=== PATIENT | female | born 1965 | race African-American/Black ===

== ENCOUNTER 2023-10-07 23:30 | Inpatient (IN) | payer SELFPAY ==
[2023-10-07] MEDS ORDERED: Morphine 4 MG/ML VIAL ONE (23:50)
[2023-10-07] MEDS ORDERED: Ondansetron PF 4 MG/2 ML Vial ONE (23:50)
[2023-10-08 00:43] LABS: #Eosinphils 0.1 thou/uL (0.0-0.7); #Monocytes 0.5 thou/uL (0.11-0.59); #Neutrophils 5.7 thou/uL (1.40-6.50); %Basophils 0.4 % (0.0-1.0); %Eosinophils 0.8 % (0.0-10.0); %Lymphocytes 15.5 % (21.0-51.0); %Monocytes 6.8 % (0.0-10.0); %Neutrophils 75.6 % (42.0-75.0); Hematocrit 26.2 % (36.0-47.0); Hemoglobin 8.7 g/dL (12.0-16.0); Mean Corpuscular HGB CONC 33.2 g/dL (32.0-36.0); Mean Corpuscular Hemoglobin 28.7 pg (27.0-31.0); Mean Corpuscular Volume 86.5 fl (78.0-98.0); Mean Platelet Volume 11.4 fL (7.4-10.4); Platelet Count 131 10x3/uL (130-400); RBC Distribution Width 16.3 % (11.5-14.5); Red Blood Cell (RBC) Count 3.03 mill/uL (4.20-5.40); White Blood Cell (WBC) Count 7.5 10x3/uL (4.8-10.8)
[2023-10-08] MEDS ORDERED: fentaNYL 50 mcg/mL 1 mL Vial ONE (00:50)
[2023-10-08 00:57] LABS: PTT 26.8 sec (22.9-36.1); Prothrombin Time 13.5 sec (12.0-14.7)
[2023-10-08 01:06] LABS: ALT (SGPT) 28 U/L (8-55); AST (SGOT) 24 U/L (5-34); Albumin 4.1 g/dL (3.5-5.0); Alkaline Phosphatase 285 U/L (40-110); Anion Gap 19 mmol/L (10-20); BUN (Urea Nitrogen) 25 mg/dL (9.8-20.1); Bilirubin, Total 0.8 mg/dL (0.2-1.2); CK (CPK) 33 U/L (29-168); Calc. Creatinine Clearance 0 mL/min (70-130); Calcium 10.3 mg/dL (7.8-10.44); Carbon Dioxide 17 mmol/L (22-29); Chloride 104 mmol/L (98-107); Estimated GFR 43; Glucose 156 mg/dL (70-105); Lipase 5 U/L (8-78); Potassium 5.1 mmol/L (3.5-5.1); Protein, Total 8.1 g/dL (6.0-8.3); Sodium 135 mmol/L (136-145)
[2023-10-08 01:08] LABS: Troponin I Less than 0.010 ng/mL (< 0.028)
[2023-10-08] MEDS ORDERED: Ondansetron ODT 4 MG TAB SL PRN (03:15)
[2023-10-08] MEDS ORDERED: Ondansetron PF 4 MG/2 ML Vial IVP PRN (03:15)
[2023-10-08] MEDS ORDERED: Acetaminophen 325 MG TAB PO PRN (03:15)
[2023-10-08] MEDS ORDERED: hydrALAZINE 20 MG/ML VIAL SLOW IVP PRN (03:55)
[2023-10-08] MEDS ORDERED: Ipratropium/Albuterol 3 ML NEB NEB PRN (03:55)
[2023-10-08] MEDS: Morphine 2 MG/ML VIAL SLOW IVP PRN (04:18)
[2023-10-08] MEDS: Sodium Chloride 0.9% 1,000 ML IV SCH (04:22)
[2023-10-08] MEDS: Acetaminophen 325 MG TAB PO SCH (05:08)
[2023-10-08] MEDS: traMADol HCl 50 MG TAB PO SCH (05:08)
[2023-10-08] MEDS: traMADol HCl 50 MG TAB PO PRN (05:09)
[2023-10-08 05:50] VITALS: BMI 23.4
[2023-10-08 07:17] LABS: Prothrombin Time 13.5 sec (12.0-14.7)
[2023-10-08 07:18] LABS: PTT 28.2 sec (22.9-36.1)
[2023-10-08] MEDS ORDERED: CEFAZOLIN 2 GM in Sodium Chloride 0.9% 100 ML IVPB SCH (08:00)
[2023-10-08] MEDS: Senokot S 8.6-50 MG TAB PO SCH (08:38)
[2023-10-08] MEDS: Polyethylene Glycol 3350 17 GM Packet PO SCH (08:38)
[2023-10-08] MEDS: cloNIDine 0.1 MG TAB PO SCH (08:38)
[2023-10-08] MEDS: Carvedilol 3.125 MG TAB PO SCH (08:38)
[2023-10-08] MEDS: Famotidine/PF 20 mg/2ml Vial SLOW IVP SCH (08:38)
[2023-10-08] MEDS: Amlodipine 5 MG TAB PO SCH (08:38)
[2023-10-08] MEDS: Ferrous Sulfate 325 MG TAB PO SCH (08:38)
[2023-10-08] MEDS ORDERED: Sodium Chloride 0.9% 100 ML ONE (11:55)
[2023-10-08] MEDS ORDERED: CEFAZOLIN 2 GM VIAL ONE (11:55)
[2023-10-08] MEDS ORDERED: PROPOFOL 20 ML ONE (12:01)
[2023-10-08] MEDS ORDERED: Lidocaine 1% PF 5 ML VIAL ONE (12:01)
[2023-10-08] MEDS ORDERED: Ondansetron PF 4 MG/2 ML Vial ONE (12:01)
[2023-10-08] MEDS ORDERED: fentaNYL PF 100 MCG/2 ML SYRINGE ONE (12:25)
[2023-10-08] MEDS ORDERED: Lidocaine 2% PF 5 ML VIAL ONE (12:34)
[2023-10-08] MEDS ORDERED: CEFAZOLIN 1 GM VIAL ONE (12:34)
[2023-10-08] MEDS ORDERED: ePHEDrine Sulfate 50 MG/10 ML VIAL ONE (12:34)
[2023-10-08] MEDS ORDERED: Phenylephrine 10 MG/ML VIAL ONE (12:34)
[2023-10-08] MEDS: CEFAZOLIN 2 GM in Sodium Chloride 0.9% 100 ML IVPB SCH (20:39)
[2023-10-09 04:52] LABS: #Monocytes 0.6 thou/uL (0.11-0.59); #Neutrophils 4.9 thou/uL (1.40-6.50); %Basophils 0.2 % (0.0-1.0); %Eosinophils 0.2 % (0.0-10.0); %Lymphocytes 10.8 % (21.0-51.0); %Monocytes 9.9 % (0.0-10.0); %Neutrophils 77.9 % (42.0-75.0); Hematocrit 17.6 % (36.0-47.0); Hemoglobin 5.8 g/dL (12.0-16.0); Mean Corpuscular Hemoglobin 29.4 pg (27.0-31.0); Mean Corpuscular Volume 89.3 fl (78.0-98.0); Mean Platelet Volume 12.1 fL (7.4-10.4); Red Blood Cell (RBC) Count 1.97 mill/uL (4.20-5.40); White Blood Cell (WBC) Count 6.3 10x3/uL (4.8-10.8)
[2023-10-09 04:55] LABS: INR-International Normal Ratio 1.2; Prothrombin Time 14.9 sec (12.0-14.7)
[2023-10-09 04:56] LABS: PTT 37.1 sec (22.9-36.1)
[2023-10-09 04:58] LABS: Critical Call w/ Read Back NUR.LW8@0458; Platelet Count 96 10x3/uL (130-400)
[2023-10-09 05:26] LABS: Anion Gap 15 mmol/L (10-20); BUN (Urea Nitrogen) 26 mg/dL (9.8-20.1); Calc. Creatinine Clearance 33 mL/min (70-130); Calcium 9.6 mg/dL (7.8-10.44); Carbon Dioxide 18 mmol/L (22-29); Chloride 108 mmol/L (98-107); Estimated GFR 34; Glucose 136 mg/dL (70-105); Sodium 136 mmol/L (136-145)
[2023-10-09 18:40] LABS: #Monocytes 0.7 thou/uL (0.11-0.59); #Neutrophils 4.8 thou/uL (1.40-6.50); %Basophils 0.3 % (0.0-1.0); %Eosinophils 0.3 % (0.0-10.0); %Lymphocytes 11.5 % (21.0-51.0); %Monocytes 10.6 % (0.0-10.0); %Neutrophils 76.2 % (42.0-75.0); Hematocrit 21.4 % (36.0-47.0); Hemoglobin 7.3 g/dL (12.0-16.0); Mean Corpuscular HGB CONC 34.1 g/dL (32.0-36.0); Mean Corpuscular Hemoglobin 30.4 pg (27.0-31.0); Mean Corpuscular Volume 89.2 fl (78.0-98.0); Mean Platelet Volume 12.4 fL (7.4-10.4); RBC Distribution Width 15.8 % (11.5-14.5); White Blood Cell (WBC) Count 6.3 10x3/uL (4.8-10.8)
[2023-10-09 18:42] LABS: Platelet Count 103 10x3/uL (130-400)
[2023-10-09] MEDS: Famotidine/PF 20 mg/2ml Vial SLOW IVP SCH (20:44)
[2023-10-10 04:57] LABS: #Eosinphils 0.1 thou/uL (0.0-0.7); #Monocytes 0.8 thou/uL (0.11-0.59); #Neutrophils 5.5 thou/uL (1.40-6.50); %Basophils 0.3 % (0.0-1.0); %Eosinophils 0.7 % (0.0-10.0); %Monocytes 11.4 % (0.0-10.0); %Neutrophils 77.3 % (42.0-75.0); Hematocrit 23.8 % (36.0-47.0); Hemoglobin 8.1 g/dL (12.0-16.0); Mean Corpuscular Hemoglobin 30.3 pg (27.0-31.0); Mean Corpuscular Volume 89.1 fl (78.0-98.0); Mean Platelet Volume 11.7 fL (7.4-10.4); Platelet Count 91 10x3/uL (130-400); RBC Distribution Width 15.7 % (11.5-14.5); Red Blood Cell (RBC) Count 2.67 mill/uL (4.20-5.40); White Blood Cell (WBC) Count 7.1 10x3/uL (4.8-10.8)
[2023-10-10 05:15] LABS: Anion Gap 12 mmol/L (10-20); BUN (Urea Nitrogen) 27 mg/dL (9.8-20.1); Calc. Creatinine Clearance 40 mL/min (70-130); Calcium 9.6 mg/dL (7.8-10.44); Carbon Dioxide 18 mmol/L (22-29); Chloride 106 mmol/L (98-107); Estimated GFR 43; Glucose 101 mg/dL (70-105); Potassium 4.6 mmol/L (3.5-5.1); Sodium 131 mmol/L (136-145)
[2023-10-10] MEDS: Sodium Chloride 0.9% 1,000 ML IV SCH (08:05)
[2023-10-11 06:36] LABS: #Eosinphils 0.1 thou/uL (0.0-0.7); #Monocytes 0.7 thou/uL (0.11-0.59); #Neutrophils 5.1 thou/uL (1.40-6.50); %Basophils 0.3 % (0.0-1.0); %Eosinophils 1.2 % (0.0-10.0); %Lymphocytes 10.8 % (21.0-51.0); %Monocytes 9.9 % (0.0-10.0); %Neutrophils 76.4 % (42.0-75.0); Hematocrit 23.4 % (36.0-47.0); Hemoglobin 7.9 g/dL (12.0-16.0); Mean Corpuscular HGB CONC 33.8 g/dL (32.0-36.0); Mean Platelet Volume 12.4 fL (7.4-10.4); Platelet Count 121 10x3/uL (130-400); RBC Distribution Width 15.9 % (11.5-14.5); Red Blood Cell (RBC) Count 2.63 mill/uL (4.20-5.40); White Blood Cell (WBC) Count 6.7 10x3/uL (4.8-10.8)
[2023-10-11 07:00] LABS: ALT (SGPT) 7 U/L (8-55); AST (SGOT) 13 U/L (5-34); Albumin 2.8 g/dL (3.5-5.0); Alkaline Phosphatase 173 U/L (40-110); Anion Gap 13 mmol/L (10-20); BUN (Urea Nitrogen) 23 mg/dL (9.8-20.1); Bilirubin, Total 1.4 mg/dL (0.2-1.2); Calc. Creatinine Clearance 52 mL/min (70-130); Calcium 9.4 mg/dL (7.8-10.44); Carbon Dioxide 19 mmol/L (22-29); Chloride 106 mmol/L (98-107); Estimated GFR 59; Glucose 82 mg/dL (70-105); Potassium 4.4 mmol/L (3.5-5.1); Protein, Total 5.8 g/dL (6.0-8.3); Sodium 134 mmol/L (136-145)
[2023-10-12] MEDS: HYDROcodone/Acetaminophen 5/325 mg Tablet PO PRN (12:55)
[2023-10-12 15:34] VITALS: BP 175/73; TEMP 98.6
== END 2023-10-12 17:20 | disposition home or self-care (01) | DRG 481 ==
LOC: ERS 23:30 → SURG A 10-08 02:48
PROVIDERS: ADMIT Specialist; ATTEND Specialist
PROC: 0QS806Z Reposition Right Femoral Shaft with Intramedullary Internal Fixation Device, Open Approach (ICD-10-PCS; principal; 2023-10-08)
DX: S72.301A Unspecified fracture of shaft of right femur, initial encounter for closed fracture (principal); E87.1 Hypo-osmolality and hyponatremia; N17.9 Acute kidney failure, unspecified; I10 Essential (primary) hypertension; Z90.49 Acquired absence of other specified parts of digestive tract; W18.2XXA Fall in (into) shower or empty bathtub, initial encounter; Z79.899 Other long term (current) drug therapy
CPT/HCPCS: 27502; 36415; 36430; 70450; 72125; 80048; 80053; 82550; 83690; 84484; 85025; 85610; 85730; 86850; 86900; 86901; 88184; 88307; 88341; 88342; 93005; 96361; 96374; 96375; C1713; J0690; J2001; J2270; J2272; J2371; J2405; J2704; J3010; J3490; J7050; P9016; S0028